=== PATIENT | male | born 1980 | race Caucasian/White ===

== ENCOUNTER 2022-06-11 17:30 | Observation (INO) | payer OTHER ==
[2022-06-11 17:53] VITALS: BMI 39.1
[2022-06-11] MEDS ORDERED: FOLIC ACID INJECTION - 1 MG, THIAMINE HCL 100 MG, MULTIVIT INJECTION ADULT 10 ML in SOD... IVPB ONE (18:38)
[2022-06-11 19:26] LABS: VENOUS BASE EXCESS 0.6 mmol/L (-2-2); VENOUS O2 SATURATION 88.9 % (70-80); VENOUS PCO2 51.1 mmHg (38-52); VENOUS PH 7.342 (7.310-7.410)
[2022-06-11 19:28] LABS: BASO % 1.6 % (0-2.0); EOS % 3.9 % (0-4.5); HEMATOCRIT 38.4 % (35.4-49); HEMOGLOBIN 12.6 GM/dL (11.7-16.9); LYMPH % 54.3 % (8-40); MCH 26.3 pg (25.7-33.7); MCHC 32.8 g/dl (32.0-35.9); MEAN CELL VOLUME 80.1 fl (80-96); MONO % 8.1 % (3.8-10.2); NEUT % 32.1 % (42.8-82.8); PLATELET COUNT 497 10^3/uL (134-434); RDW 14.6 % (11.9-15.9); WHITE BLOOD COUNT 12.1 K/mm3 (4.0-10.0)
[2022-06-11 19:40] LABS: PROTHROMBIN TIME (PATIENT) 11.5 SEC (9.7-13.0)
[2022-06-11 19:42] LABS: ACTIVATED PTT 31.7 SECONDS (25.2-36.5)
[2022-06-11 20:01] LABS: CHLORIDE 101 mmol/L (98-107); SODIUM 136 mmol/L (136-145)
[2022-06-11 20:03] LABS: CALCIUM 8.9 mg/dL (8.5-10.1)
[2022-06-11 20:04] LABS: ALBUMIN 3.5 g/dl (3.4-5.0); ANION GAP 5 MMOL/L (8-16); BLOOD UREA NITROGEN 22.6 mg/dL (7-18); CO2 30 mmol/L (21-32); GLUCOSE,RANDOM 77 mg/dL (74-106)
[2022-06-11 20:07] LABS: CREATININE 1.1 mg/dL (0.55-1.3); SGOT/AST 50 U/L (15-37); SGPT/ALT 39 U/L (13-61)
[2022-06-11 20:09] LABS: BILIRUBIN,TOTAL 0.4 mg/dL (0.2-1); TOT PROT 7.3 g/dl (6.4-8.2)
[2022-06-11 20:10] LABS: ALK PHOS 107 U/L (45-117)
[2022-06-11 20:12] LABS: N-TERMINAL BNP 133.4 pg/ml (5-125)
[2022-06-12 03:22] LABS: URINE APPEARANCE CLEAR; URINE BILIRUBIN NEGATIVE (NEGATIVE); URINE COLOR YELLOW; URINE GLUCOSE (UA) NEGATIVE (NEGATIVE); URINE KETONE NEGATIVE (NEGATIVE); URINE LEUK ESTERASE NEGATIVE (NEGATIVE); URINE NITRITE NEGATIVE (NEGATIVE); URINE PROTEIN NEGATIVE (NEGATIVE); URINE UROBILINOGEN 0.2 mg/dL (0.2-1.0)
[2022-06-12 03:31] LABS: URINE AMPHETAMINES NEGATIVE (NEGATIVE)
[2022-06-12 03:34] LABS: COCAINE, UR POSITIVE (NEGATIVE); OPIATES, URI POSITIVE (NEGATIVE); PHENCYCLIDINE,URINE NEGATIVE (NEGATIVE); URINE BARBITURATES NEGATIVE (NEGATIVE); URINE BENZODIAZEPINES NEGATIVE (NEGATIVE)
[2022-06-12] MEDS ORDERED: SODIUM CHLORIDE 1,000 ML IV SCH (04:00)
[2022-06-12 05:25] LABS: METHADONE, UR POSITIVE (NEGATIVE)
[2022-06-12] MEDS ORDERED: ENOXAPARIN NA (PORCINE) 40 MG/0.4 ML DISP.SYRIN SQ ONE (10:59)
[2022-06-12] MEDS: ENOXAPARIN NA (PORCINE) 40 MG/0.4 ML DISP.SYRIN SQ SCH (10:59)
[2022-06-12 12:38] LABS: HEMATOCRIT 39.3 % (35.4-49); HEMOGLOBIN 12.9 GM/dL (11.7-16.9); MCH 26.8 pg (25.7-33.7); MCHC 32.9 g/dl (32.0-35.9); MEAN CELL VOLUME 81.7 fl (80-96); MEAN PLT VOLUME 8.6 fl (7.5-11.1); PLATELET COUNT 438 10^3/uL (134-434); RBC 4.81 M/mm3 (4.00-5.60); RDW 15.1 % (11.9-15.9)
[2022-06-12 12:59] LABS: CALCIUM 8.5 mg/dL (8.5-10.1)
[2022-06-12 13:00] LABS: ALBUMIN 2.8 g/dl (3.4-5.0); BLOOD UREA NITROGEN 11.8 mg/dL (7-18); MAGNESIUM 2.2 mg/dL (1.8-2.4)
[2022-06-12 13:03] LABS: PHOSPHOROUS 2.8 mg/dL (2.5-4.9)
[2022-06-12 13:04] LABS: BILIRUBIN,TOTAL 0.4 mg/dL (0.2-1); TOT PROT 6.3 g/dl (6.4-8.2)
[2022-06-13] MEDS: MELATONIN 5 MG TABLETS PO PRN ×2 (00:35→21:57)
[2022-06-13] MEDS: ENOXAPARIN NA (PORCINE) 40 MG/0.4 ML DISP.SYRIN SQ SCH (09:45)
[2022-06-13] MEDS ORDERED: methaDONE HCL 40 MG DISPERSABLE TABLET PO ONE (10:00)
[2022-06-14] MEDS: methaDONE HCL 40 MG DISPERSABLE TABLET PO SCH (05:09)
[2022-06-14] MEDS: ENOXAPARIN NA (PORCINE) 40 MG/0.4 ML DISP.SYRIN SQ SCH (09:03)
[2022-06-14] MEDS: NICOTINE 21 MG/24 HOURS TOPICAL PATCH TD SCH (16:34)
[2022-06-14] MEDS: MELATONIN 5 MG TABLETS PO PRN (21:56)
[2022-06-15] MEDS: methaDONE HCL 40 MG DISPERSABLE TABLET PO SCH (05:18)
[2022-06-15] MEDS: NICOTINE 21 MG/24 HOURS TOPICAL PATCH TD SCH (10:50)
[2022-06-15] MEDS: ENOXAPARIN NA (PORCINE) 40 MG/0.4 ML DISP.SYRIN SQ SCH (10:55)
[2022-06-15 11:39] LABS: HEMATOCRIT 48.5 % (35.4-49); HEMOGLOBIN 15.8 GM/dL (11.7-16.9); MCH 26.8 pg (25.7-33.7); MCHC 32.5 g/dl (32.0-35.9); MEAN CELL VOLUME 82.5 fl (80-96); MEAN PLT VOLUME 8.4 fl (7.5-11.1); PLATELET COUNT 538 10^3/uL (134-434); RBC 5.89 M/mm3 (4.00-5.60); RDW 15.1 % (11.9-15.9); WHITE BLOOD COUNT 14.6 K/mm3 (4.0-10.0)
[2022-06-15 13:05] LABS: ANISOCYTOSIS 0; MACROCYTOSIS 0; OVALOCYTE 1+
[2022-06-15 13:16] LABS: ALBUMIN 3.6 g/dl (3.4-5.0); BILIRUBIN,TOTAL 0.2 mg/dL (0.2-1); CALCIUM 9.4 mg/dL (8.5-10.1); CREATININE 1.2 mg/dL (0.55-1.3); TOT PROT 7.9 g/dl (6.4-8.2)
[2022-06-15] MEDS: busPIRone HCL 10 MG TABLET (FP) PO SCH ×2 (13:56→21:35)
[2022-06-15] MEDS ORDERED: SODIUM CHLORIDE 0.9% 500 ML INFUS.BAG IV ONE (14:18)
[2022-06-15] MEDS ORDERED: DOCUSATE SODIUM 100 MG CAPSULE (FP) PO PRN (14:23)
[2022-06-15] MEDS: FOLIC ACID 1 MG TABLET (FP) PO SCH (16:48)
[2022-06-15] MEDS: MULTIVIT-MINERALS ORAL LIQUID PO SCH (16:49)
[2022-06-15] MEDS: THIAMINE HCL 100 MG TABLET (FP) PO SCH (16:49)
[2022-06-15] MEDS: NICOTINE POLACRILEX 4 MG GUM BUC PRN ×2 (16:50→21:34)
[2022-06-15] MEDS: buPROPion HCL 75 MG TABLET PO SCH (21:34)
[2022-06-15] MEDS: MELATONIN 5 MG TABLETS PO PRN (21:35)
[2022-06-16] MEDS: busPIRone HCL 10 MG TABLET (FP) PO SCH ×2 (05:04→13:18)
[2022-06-16] MEDS: methaDONE HCL 40 MG DISPERSABLE TABLET PO SCH (05:04)
[2022-06-16] MEDS: NICOTINE POLACRILEX 4 MG GUM BUC PRN ×2 (05:05→13:19)
[2022-06-16 07:58] LABS: CALCIUM 9.4 mg/dL (8.5-10.1)
[2022-06-16 08:02] LABS: CREATININE 1.2 mg/dL (0.55-1.3)
[2022-06-16] MEDS: NICOTINE 21 MG/24 HOURS TOPICAL PATCH TD SCH (10:22)
[2022-06-16] MEDS: THIAMINE HCL 100 MG TABLET (FP) PO SCH (10:22)
[2022-06-16] MEDS: buPROPion HCL 75 MG TABLET PO SCH (10:22)
[2022-06-16] MEDS: ENOXAPARIN NA (PORCINE) 40 MG/0.4 ML DISP.SYRIN SQ SCH (10:22)
[2022-06-16] MEDS: FOLIC ACID 1 MG TABLET (FP) PO SCH (10:22)
[2022-06-16] MEDS: MULTIVIT-MINERALS ORAL LIQUID PO SCH (10:29)
[2022-06-16] MEDS ORDERED: HYDROCORTISONE 1% TOPICAL OINT 30 GM TUBE TP PRN (12:38)
[2022-06-16 13:23] LABS: HEMATOCRIT 44.7 % (35.4-49); HEMOGLOBIN 14.6 GM/dL (11.7-16.9); MCH 26.4 pg (25.7-33.7); MCHC 32.6 g/dl (32.0-35.9); MEAN PLT VOLUME 8.4 fl (7.5-11.1); PLATELET COUNT 492 10^3/uL (134-434); RBC 5.52 M/mm3 (4.00-5.60); RDW 15.2 % (11.9-15.9); WHITE BLOOD COUNT 12.1 K/mm3 (4.0-10.0)
[2022-06-16 15:40] VITALS: TEMP 98.4
[2022-06-19 14:52] VITALS: BP 101/50; PULSE 62; RESP 12
== END 2022-06-16 16:33 | disposition home or self-care (01) ==
LOC: JER 17:30 → UNDOADMOB 18:51 → JERBED 18:51 → MERGE 06-12 03:46 → INTOOBSV 06-12 06:00 → OBSVTOIN 06-12 06:00 → J4W 06-12 17:52
PROVIDERS: ADMIT Hospitalist; ATTEND Nurse Practitioner Family
PROC: 3E033GC Introduction of Other Therapeutic Substance into Peripheral Vein, Percutaneous Approach (ICD-10-PCS; principal; 2022-06-12)
PROC: 3E0337Z Introduction of Electrolytic and Water Balance Substance into Peripheral Vein, Percutaneous Approach (ICD-10-PCS; 2022-06-12)
DX: S09.90XA Unspecified injury of head, initial encounter (principal); F32.9 Major depressive disorder, single episode, unspecified; F19.10 Other psychoactive substance abuse, uncomplicated; F41.8 Other specified anxiety disorders; W18.39XA Other fall on same level, initial encounter; Y93.89 Activity, other specified; Y92.239 Unspecified place in hospital as the place of occurrence of the external cause; R55 Syncope and collapse; F17.210 Nicotine dependence, cigarettes, uncomplicated
CPT/HCPCS: 0241U-QW; 36415; 70450-TC; 71045-TC-FY; 72125-TC; 80048; 80053; 80061; 80307; 81003; 82803; 83036; 83735; 83880; 84100; 84484; 85025; 85027; 85610; 85730; 86850; 86900; 86901; 87086; 93005; 93010; 93306-TC; 96360; 96365; 97116-GP; 97161-GP; 99285-25; G0378